=== PATIENT | female | born 1955 | race Caucasian/White ===

== ENCOUNTER 2017-03-08 14:39 | Emergency (ER) | payer OTHER ==
[~2017-03-08] VITALS: Ht 149.9 cm; Wt 106.0 kg
[~2017-03-08 14:39] MED LIST: ACCUMIS; ACCUMIS19; AMLO10 PO; FREEKIT6; GLIM4TAB PO; GLUCOMTESTSTRIPS XX; HYDR50TA5 PO; JANU25TA PO; LOSA100T PO; PRAV40 PO; TRAD5TAB PO; WARF-20 PO; WARF5TAB PO; Z.0.WALKERFRONT
[2017-03-08 14:52] VITALS: BP 132/78; PULSE 89; RESP 16; TEMP 98.4; O2SAT 99
[2017-03-08] MEDS ORDERED: GLIM4TAB PO (15:19)
[2017-03-08] MEDS ORDERED: LOSA100T PO (15:19)
[2017-03-08] MEDS ORDERED: TRAD5TAB PO (15:19)
[2017-03-08] MEDS ORDERED: EMPA1TAB3 PO (15:19)
[2017-03-08] MEDS ORDERED: HYDR50TA3 PO (15:19)
[2017-03-08] MEDS ORDERED: AMLO10TA2 PO (15:19)
[2017-03-08] MEDS ORDERED: WARF-58 PO (15:19)
--- NOTE | 2017-03-08 15:33 | PD ---
HPI Chief Complaint: Injury Time Seen by Provider: 15:33 Travel History International Travel<30 days: No Contact w/Intl Traveler<30days: No Traveled to known affect area: No History of Present Illness HPI 62-year-old female with PMH of DM, HTN, on Coumadin presents to the ED for evaluation of abrupt onset right heel and foot pain while walking in her driveway today. Patient states that she felt "as if I stepped in a hole." She has been minimally ambulatory since the accident. No treatment prior to arrival. PFSH Past Medical History Hx Anticoagulant Therapy: Yes (COUMADIN) Cancer: No Cardiac Catheterization: Yes (15 YRS AGO) Cardiovascular Problems: Yes (HTN) Congestive Heart Failure: No Diabetes: Yes Patient Takes Glucophage: No Diminished Hearing: No Genitourinary: Yes Hypertension: Yes Kidney Stones: Yes Musculoskeletal: No Neurologic: No Psychiatric: No Reproductive: No Respiratory: No ?: Not Menopausal: Yes Dilation and Curettage (D&C): Yes Past Surgical History Abdominal Surgery: No Cardiac Surgery: Yes (heart catherization (2001) no stents) Ear Surgery: No Endocrine Surgery: No Eye Surgery: Yes (ang laser surgery) Genitourinary Surgery: No Oral Surgery: No Thoracic Surgery: No Other Surgery: Yes Social History Alcohol Use: No Tobacco Use: No Substance Use: No Allergies-Medications (Allergen,Severity, Reaction): Coded Allergies: Contrast Media (Unverified Allergy, Unknown, Chills, 03/08/17) Reported Meds & Prescriptions Reported Meds & Active Scripts Active Lortab (Hydrocodone-Acetaminophen) 5-325 Mg Tab 1-2 Tab PO Q6H PRN Reported Amlodipine (Amlodipine Besylate) 10 Mg Tab 10 Mg PO DAILY Losartan (Losartan Potassium) 100 Mg Tab 100 Mg PO DAILY Hydrochlorothiazide 50 Mg Tab 50 Mg PO DAILY Glimepiride 4 Mg Tab 4 Mg PO BIDAC Tradjenta (Linagliptin) 5 Mg Tab 5 Mg PO DAILY Jardiance (Empagliflozin) 25 Mg Tab 25 Mg PO DAILY Warfarin 3 Mg Tab 3.5 Mg PO DAILY Review of Systems Except as stated in HPI: all other systems reviewed are Neg Physical Exam Narrative GENERAL: Well-nourished, well-developed pleasant, obese white female in NAD. SKIN: Focused skin assessment warm/dry. HEAD: Normocephalic. EYES: No scleral icterus. No injection or drainage. NECK: Supple, trachea midline. No JVD or lymphadenopathy. CARDIOVASCULAR: Regular rate and rhythm without murmurs, gallops, or rubs. RESPIRATORY: Breath sounds equal bilaterally. No accessory muscle use. GASTROINTESTINAL: Abdomen soft, non-tender, nondistended. MUSCULOSKELETAL: No cyanosis, or edema. FOCUSED RIGHT LOWER EXTREMITY EXAM: 2+ radial pulse. Hohmann sign negative. TTP of the insertion of the Achilles, with palpable ~1cm bony fragment and defect noted in the soft tissues of posterior ankle. Patient retains full, active, painless ROM of the ankle. Mild to moderate plantar flexion on Salazar testing. Neurovascularly intact. BACK: Nontender without obvious deformity. No CVA tenderness. Data Data Last Documented VS Vital Signs Date Time Temp Pulse Resp B/P Pulse Ox O2 Delivery O2 Flow Rate FiO2 03/09/17 00:18 70 18 115/72 99 Room Air 03/08/17 19:35 97.7 Orders Foot, Complete ([id number]) (03/08/17 15:07) Ice/Cold Pack (03/08/17 15:07) Mri Joint Ankle W/O Contrast (03/08/17 ) Tramadol-Acetamin 37.5-325 Mg (Ultracet (03/08/17 18:30) Splint Or Brace Apply/Monitor (03/08/17 22:26) Tramadol (Ultram) (03/08/17 22:30) MDM Medical Decision Making Medical Screen Exam Complete: Yes Emergency Medical Condition: Yes Differential Diagnosis Ankle sprain versus ankle strain versus partial Achilles tear versus complete Achilles tendon or versus avulsion fracture versus other Narrative Course 62-year-old female with PMH of DM, HTN, on Coumadin presents to the ED for evaluation of abrupt onset right heel and foot pain while walking in her driveway today. Patient states that she felt "as if I stepped in a hole." She has been minimally ambulatory since the accident. Vitals reviewed. Physical exam suspicious for partial Achilles tear. Patient does report history of Levaquin treatment for pneumonia in the past few months. X-rays reveal evidence of an avulsion fracture of the calcaneus by my read. I discussed the case with Dr. Sargent who recommends MRI. He requests to be called with results of the MRI. Tentatively plan for splint with the foot in 30-45 of plantar flexion,pain control, follow-up in the office. Disposition per Dr. Zarate. Scripts Hydrocodone-Acetaminophen (Lortab)5-325 Mg Tab1-2 Tab PO Q6H PRN (PAIN) #30 TAB Prov:Phil Zarate MD 03/08/17 Sandrine Barroso Mar 08, 2017 15:33
--- NOTE | 2017-03-08 15:56 | RADRPT ---
EXAM DATE/TIME: 03/08/2017 15:20 [facility] COMPARISON: No previous studies available for comparison. INDICATIONS : Patient states pain started this morning, no known injury. MEDICAL HISTORY : Stroke. Hypertension Diabetes mellitus type II. SURGICAL HISTORY : ENCOUNTER: Initial ACUITY: 1 day PAIN SCORE: 8/10 LOCATION: Right foot, posterior aspect. FINDINGS: Three view examination of the right foot demonstrates no soft tissue swelling, dislocation, or fractu re. The tarsal bones appear intact. The interphalangeal and metatarsophalangeal joints are intact. The calcaneus is intact. Bony mineralization is normal. CONCLUSION: 1. No acute findings. Mild osteoarthritis. Prominent bone spurs posterior calcaneus. Humphrey Angel MD on March 08, 2017 at 15:53 Board Certified Radiologist. This report was verified electronically.
[2017-03-08] MEDS ORDERED: traMADol/ACETAMINOPHEN 37.5/325 1 TAB PO ONE (18:30)
[2017-03-08 19:35] VITALS: BP 95/60; PULSE 70; RESP 17; TEMP 97.7; O2SAT 100
[2017-03-08] MEDS ORDERED: traMADol HCL 50 MG TAB PO ONE (22:30)
--- NOTE | 2017-03-08 23:00 | RADRPT ---
EXAM DATE/TIME: 03/08/2017 21:52 [facility] COMPARISON: No previous studies available for comparison. INDICATIONS : Right ankle and lower calf pain. MEDICAL HISTORY : Hypertension. Diabetes mellitus type 2. Hypercholesterolemia. Stroke. SURGICAL HISTORY : D and C. ENCOUNTER: Subsequent ACUITY: 1 day PAIN SCORE: 8/10 LOCATION: Right ankle TECHNIQUE: Multiplanar, multisequence MRI examination was performed without contrast. FINDINGS: BONE/CARTILAGE: Bone marrow signal is homogeneous. Articular cartilage signal is within normal limits. TENDONS: There is complete disruption of the distal Achilles tendon. The tear is seen 4 cm proximal to the Ac hilles attachment site at the posterior calcaneus. There is thickening and increased signal within th e distal Achilles tendon which may represent some underlying chronic change. LIGAMENTS: The lateral and medial ligament complexes are intact. MISCELLANEOUS: The plantar aponeurosis is intact. There is a calcaneal spur at the plantar aponeurosis attachment s ite. The tarsal tunnel is within normal limits. There is superficial edema throughout the lower leg a nd ankle region. CONCLUSION: Complete tear of the distal Achilles tendon with suspected chronic tendinopathy. Oumar Swanson MD on March 08, 2017 at 22:52 Board Certified Radiologist. This report was verified electronically.
[2017-03-08] MEDS ORDERED: HYDR-3533 PO (23:35)
--- NOTE | 2017-03-08 23:36 | PD ---
Data Data Last Documented VS Vital Signs Date Time Temp Pulse Resp B/P Pulse Ox O2 Delivery O2 Flow Rate FiO2 03/08/17 19:35 97.7 70 17 95/60 100 Room Air Orders Foot, Complete ([id number]) (03/08/17 15:07) Ice/Cold Pack (03/08/17 15:07) Mri Joint Ankle W/O Contrast (03/08/17 ) Tramadol-Acetamin 37.5-325 Mg (Ultracet (03/08/17 18:30) Splint Or Brace Apply/Monitor (03/08/17 22:26) Tramadol (Ultram) (03/08/17 22:30) MDM Supervised Visit with CHELSY: Yes Narrative Course Assumed care patient at 11 PM: Patient with complete Achilles tendon rupture. Confirmed on MRI. We'll spoke with Dr. Sargent, will recommend dorsiflexed anterior splint, pain medicine, nonweightbearing, outpatient follow-up. Diagnosis Primary Impression: Achilles tendon rupture Qualified Code: S86.011A - Achilles tendon rupture, right, initial encounter Referrals: Butch Sargent MD 3 days Additional Instruction: Keep splint clean and dry. Use Lortab as needed for pain. Use caution as this can cause constipation or unsteadiness. No weightbearing on the right leg. Follow-up with Dr. Sargent in the next 3-5 days. Return to the emergency department for any worsening pain swelling redness or any other new or worsening symptoms. Keep leg elevated as much as possible to reduce swelling. Med/Other Pt SpecificInfo: Prescription(s) given Scripts Hydrocodone-Acetaminophen (Lortab)5-325 Mg Tab1-2 Tab PO Q6H PRN (PAIN) #30 TAB Prov:Phil Zarate MD 03/08/17 Disposition: 01 DISCHARGE HOME Condition: Stable Phil Zarate MD Mar 08, 2017 23:36
[2017-03-09 00:18] VITALS: BP 115/72; PULSE 70; RESP 18; O2SAT 99
== END 2017-03-09 00:20 | disposition home or self-care (01) ==
LOC: PHEFT 14:39
DX: S86.011A Strain of right Achilles tendon, initial encounter (principal); I10 Essential (primary) hypertension; Y99.9 Unspecified external cause status; Y92.014 Private driveway to single-family (private) house as the place of occurrence of the external cause; Y93.01 Activity, walking, marching and hiking; X58.XXXA Exposure to other specified factors, initial encounter; Z79.01 Long term (current) use of anticoagulants
CPT/HCPCS: 73630; 73721; 99284